=== PATIENT | male | born 1995 | race Caucasian/White ===

== ENCOUNTER 2023-10-24 11:23 | Outpatient (CLI) | payer OTHER, SELFPAY ==
[2023-10-24 11:52] LABS: Sperm Non-Progressive Motility 5 % (5-10); Sperm Progressive Motility 75 % (31-34); Viscosity Semen High Viscosity; Volume Semen 2.5 mL (2-5)
[2023-10-24 11:53] LABS: Epithelial Count Semen Rare /hpf; Pathology Referral Yes; Red Blood Count Semen 0-4 /hpf; Sperm Immotility 20 % (50-60); White Blood Count Semen 0-4 /hpf
[2023-10-24 11:57] LABS: PH Semen 7.5 (7.0-8.0)
== END 2023-10-24 11:24 | disposition home or self-care (01) ==
PROVIDERS: PCP Physician Assistant Medical; Visit Provider Obstetrics & Gynecology
DX: N46.9 Male infertility, unspecified (principal)
CPT/HCPCS: 80503; 89320